=== PATIENT | male | born 1970 | race Caucasian/White ===

== ENCOUNTER 2017-05-18 07:06 | Emergency (ER) | payer OTHER ==
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
[~2017-05-18 07:06] MED LIST: ANTIVERT PO; ANTIVERT12.5 MG; METHADONE PO; NO MEDICATIONS
[2017-05-18 07:31] LABS: BASOPHIL# 0.1 X10e3 (0-0.3); EOSINOPHIL# 0.1 X10e3 (0-0.7); EOSINOPHIL% 1.2 % (0.0-7.0); HEMATOCRIT 38.4 % (38.0-50.0); HEMOGLOBIN 13.2 gm/dL (13.0-16.0); LYMPHOCYTE# 0.8 X10e3 (1.0-3.5); LYMPHOCYTE% 13.1 % (17.0-45.0); MEAN CELL VOLUME 88.6 FL (83-96); MEAN CORPUSCULAR HEMOGLOBIN 30.4 PG (28-34); MEAN CORPUSCULAR HGB CONC 34.3 g/dL (30-36); MEAN PLATELET VOLUME 7.8 FL (6.5-11.5); MONOCYTE# 0.6 X10e3 (0-1.0); MONOCYTE% 8.7 % (3.0-12.0); NEUTROPHIL# 4.8 X10e3 (1.5-7.1); PLATELET COUNT 240 X10e3 (140-420); RED BLOOD COUNT 4.33 X10e (3.90-5.60); RED CELL DISTRIBUTION WIDTH 13.5 % (11.0-15.5); WHITE BLOOD COUNT 6.4 X10e3 (4.0-10.5)
[2017-05-18 07:39] LABS: DIFF IND NO
[2017-05-18 07:51] LABS: ALKALINE PHOSPHATASE 82 U/L (32-92); ALT (SGPT) 105 U/L (10-40); AST (SGOT) 99 U/L (10-42); BILIRUBIN,TOTAL 0.5 mg/dL (0.2-2.0); BLOOD UREA NITROGEN 15 mg/dL (9-23); BUN/CREATININE RATIO 16.66; CALCIUM SERUM 9.1 mg/dL (8.4-10.2); CARBON DIOXIDE 29 mmol/L (22-31); CHLORIDE 98 mmol/L (100-111); CREATININE SERUM 0.9 mg/dL (0.6-1.4); GLOM FILT RATE Estimated 101.4 mL/min (>60); GLUCOSE FASTING 105 mg/dL (70-110); LIPASE 29 U/L (22-51); POTASSIUM 3.5 mmol/L (3.5-5.1); PROTEIN TOTAL SERUM 7.4 g/dL (6.0-8.3); SODIUM 134 mmol/L (135-145)
[2017-05-18 08:00] LABS: ALCOHOL BLOOD <5 mg/dL ([, 0])
== END 2017-05-18 11:44 | disposition home or self-care (01) ==
LOC: SED 07:06
PROVIDERS: Emergency Medicine
DX: S00.03XA Contusion of scalp, initial encounter (principal); S93.402A Sprain of unspecified ligament of left ankle, initial encounter; S93.602A Unspecified sprain of left foot, initial encounter; S16.1XXA Strain of muscle, fascia and tendon at neck level, initial encounter; S60.511A Abrasion of right hand, initial encounter; F17.200 Nicotine dependence, unspecified, uncomplicated; V29.60XA Unspecified motorcycle rider injured in collision with unspecified motor vehicles in traffic accident, initial encounter
CPT/HCPCS: 29405; 36415; 70450; 71260; 72125; 73030; 73130; 73560; 73590; 73610; 73630; 74177; 80053; 82947; 83690; 85025; 96361; 96374; 96375; 99284; G0480; J1885; J2270; J2405; Q9967

== ENCOUNTER 2017-06-02 06:04 | Inpatient (IN) | payer OTHER ==
[~2017-06-02] VITALS: Ht 170.2 cm; Wt 71.2 kg
--- NOTE | ~2017-06-02 | CO ---
Unit #: [id number] #: [id number] Patient: HARMAN BERNARDO [id number] [address] [place], [place] [address] [id number] MR#: [id number] NAME: HARMAN BERNARDO. ROOM: 227 Age: 46 Sex: M Admission Date: 06/02/2017 : 1970 Attending Physician: Brigido Bear M.D. Primary Care Physician: Primary Care Physician No Consultation Date: 06/04/2017 CONSULTATION REPORT REVISED REPORT CHIEF COMPLAINT Left arm pain. HISTORY OF PRESENT ILLNESS The patient is a 46-year-old gentleman with a history of IV drug abuse with a 1 week history of pain in the left biceps, antecubital fossa. He denies any recent injections and denies injecting into the left antecubital fossa particularly. He states he is left handed and has only injected into his right arm. He has a 1 week history of progressive pain and swelling in the left arm. He was admitted with cellulitis and started on empiric vancomycin and Zosyn. A CT scan was obtained, which demonstrated a large intramuscular abscess of greater than 8 cm. The erythema has improved with antibiotics, but he continues to have severe pain with range of motion of the left elbow. It is tender to palpation. It is partially relieved with pain medication. PAST MEDICAL HISTORY History of IV drug use, date of last use unknown. PAST SURGICAL HISTORY Appendectomy and history of unknown left shoulder surgery. SOCIAL HISTORY The patient smokes tobacco. He has no alcohol use. He does IV meth. FAMILY HISTORY Noncontributory. HOME MEDICATIONS None. ALLERGIES No known drug allergies. REVIEW OF SYSTEMS Ten systems are reviewed and negative except as noted in the HPI. PHYSICAL EXAMINATION GENERAL APPEARANCE: A 46-year-old male, appearing slightly older than stated age, in no acute distress or discomfort. PSYCHIATRIC: Awake, alert, and oriented to person, place, time, and situation. Unit #: [id number] #: [id number] Patient: HARMAN BERNARDO CARDIAC: Regular rate and rhythm. PULMONARY: No increased work of breathing. Symmetric chest rise. ABDOMEN: Nondistended. HEENT: Normocephalic and atraumatic cranium. Pupils are equally round and reactive to light. VASCULAR: His hands are warm and well perfused with a palpable radial pulse. SKIN: There is induration of the skin of the biceps. There is no streaking erythema proximally. The erythema has apparently improved after IV antibiotics. MUSCULOSKELETAL: He has tenderness along the biceps and pain in the biceps with range of motion of the elbow. LYMPHATICS: He has diffuse soft tissue swelling and edema in the left upper extremity. No lymphadenopathy. DIAGNOSTIC STUDIES IMAGING STUDIES: A CT scan of the left biceps and elbow was reviewed and demonstrates a large 8-cm fluid collection within the biceps. IMPRESSION A 46-year-old gentleman with a history of IV drug use with left biceps intramuscular abscess. PLAN We will plan for incision and drainage of the abscess today. He will be n.p.o. currently. Hold any anticoagulation. Continue IV antibiotics that is currently prescribed. *NOTE TAKEN OFF. Dictated by... Harshad Morales M.D. SHARI/amol TD: 06/05/2017 03:14 JOB #: [id number] CC: Kristen/invision Please Delete CONSULTATION REPORT Page 1 of 1 X Harshad Morales MD CONSULTATION REPORT
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
--- NOTE | ~2017-06-02 | DS ---
Unit #: [id number] #: [id number] Patient: HARMAN BERNARDO [id number] [address] [address] [id number] I MR#: [id number] NAME: HARMAN BERNARDO ROOM: 227 Age: 46 Sex: M Admission Date: 06/02/2017 : 1970 Discharge Date: 06/07/2017 Attending Physician: Brigido Bear M.D. Primary Care Physician: Primary Care Physician No DISCHARGE SUMMARY DISCHARGE DIAGNOSES Methicillin-resistant Staphylococcus aureus cellulitis with abscess of left upper extremity, IV drug abuse, acute pain syndrome. HOSPITAL COURSE The patient is a 46-year-old male, who presented to [facility] Emergency Department with a 1-week history of worsening left arm pain, said it progressed from his shoulder toward his fingers and was severe. The patient does have a history of IV drug abuse and therefore, there was some concern for abscess formation. CT scan was performed as a result and the patient was noted to have a large multiloculated abscess involving a large portion of the biceps muscle extending into the antecubital fossa. Consult was placed to Orthopedics, who took the patient to the operating room and did an I and D of the left biceps intramuscular abscess. The patient continued on IV Zosyn and vancomycin which was started at admission. At this time, the patient's wound culture has grown MRSA susceptible to Bactrim, clindamycin, tetracyclines, and vancomycin. The patient has been seen by Infectious Disease, who recommends switching to oral doxycycline which has been done. The patient is being discharged home with said antibiotic at this time. DISCHARGE MEDICATIONS Doxycycline 100 mg p.o. b.i.d. x10 more days, Percocet 5/325 one p.o. q.8 hours p.r.n. pain. FOLLOWUP The patient states that he is from [place], [place], and will follow up with his provider there. This does seem reasonable and I have instructed the patient to do so at the end of the antibiotic course. Dictated by... Easton Hart/amol TD: 06/11/2017 00:57 JOB #: [id number] Unit #: [id number] #: [id number] Patient: HARMAN BERNARDO DISCHARGE SUMMARY Page 1 of 1 X Kwan Buckner MD X DISCHARGE SUMMARY
--- NOTE | ~2017-06-02 | CT125 ---
[facility] A Service [facility] RADIOLOGY TEXT RESULTS PATIENT: HARMAN BERNARDO LOCATION: [facility] : 68 UNIT #: [id number] AGE: [address]: MINNA NINO V SEX: M ORDER DR: [id number] [address] [place], [place] [address] [id number] I MR#: [id number] #: [id number] NAME: HARMAN BERNARDO. : 1970 SEX: M STUDY DATE/TIME: 06/03/2017 0:45 UNIT: [id number] PCU ROOM: 309 STUDY DESCRIPTION: CT Upper Ext Lt W Cont Attending Physician: Minna Nino M.D. Ordering Physician: Kwan Buckner M.D. Primary Care Physician: No Primary Care Physician MEDICAL IMAGING REPORT This report is preliminary unless electronic signature is present EXAM Left upper extremity CT with contrast. INDICATIONS Left upper extremity pain and swelling for the past 2 weeks. IV drug abuse. PROCEDURE Contrast-enhanced CT of the left upper extremity. This CT exam was performed with one or more of the following radiation dose reduction techniques: automatic exposure control, adjustment of mA and/or kV according to patient size, and iterative reconstruction. COMPARISON None. FINDINGS No acute bone injury or aggressive appearing bone change. There is a large multiloculated abscess involving essentially the entire biceps muscle. Largest component measures up to 8.4 cm in diameter. The abscess extends all way to the antecubital fossa. There is diffuse soft tissue edema. IMPRESSION 1. Large multiloculated abscess involving a large portion of the biceps muscle extending into the antecubital fossa. 2. Diffuse soft tissue edema. 3. No aggressive appearing bone change. Dictated by... Sebas Amado M.D. [facility] A Service [facility] RADIOLOGY TEXT RESULTS PATIENT: HARMAN BERNARDO LOCATION: [facility] : 68 UNIT #: [id number] AGE: [address]: MORE,MINNA V SEX: M ORDER DR: THIS IS AN ELECTRONICALLY VERIFIED REPORT Sebas Amado M.D. at 06/05/2017 10:01 PM Cameron TD: 06/03/2017 07:16 JOB #: [id number] MEDICAL IMAGING REPORT Page 1 of 1 COPY
--- NOTE | ~2017-06-02 | OR ---
Unit #: [id number] #: [id number] Patient: HARMAN BERNARDO [id number] [address] [place], [place] [address] [id number] I MR#: [id number] NAME: HARMAN BERNARDO. ROOM: [facility] Date of Procedure: 06/04/2017 Admission Date: 06/02/2017 Surgeon: Harshad Morales M.D. : 1970 Attending Physician: Brigido Bear M.D. Primary Care Physician: Primary Care Physician No OPERATIVE REPORT PREOPERATIVE DIAGNOSIS Left biceps intramuscular abscess. POSTOP DIAGNOSIS Left biceps intramuscular abscess. PROCEDURES Incision and drainage of left biceps intramuscular abscess. ANESTHESIA General. ESTIMATED BLOOD LOSS 20 mL. COMPLICATIONS None apparent. SPECIMENS Cultures to microbiology. INDICATIONS FOR PROCEDURE Mr. Bernardo is a 46-year-old gentleman with history of IV methamphetamine use with an intramuscular abscess in the left arm. He denies any recent injection history into this area. His abscess is confirmed by CT scan measuring of 8 cm. We discussed incision and drainage. DESCRIPTION OF PROCEDURE The patient was identified in the preoperative holding area. The operative site was marked. Preoperative antibiotics were administered. The left upper extremity was then prepped and draped in sterile fashion. An incision was made in a longitudinal fashion overlying the medial aspect of the biceps brachii. Dissection was carried down through subcutaneous tissues. The fascia was opened. The biceps muscle belly itself was exposed. Metzenbaum scissors were used to split into the biceps muscle fibers inline with the fibers. There was a large fluid collection extending proximal to our incision. The scissors and hemostat were passed up into the biceps and then spread slightly. A large efflux of purulent fluid was obtained. Cultures were obtained of the fluid. No further loculations were identified. The area was adequately decompressed. The wound was then irrigated with sterile saline via bulb lavage. A Ruth Unit #: [id number] #: [id number] Patient: HARMAN BERNARDO drain was placed into the abscess cavity. The wound was again irrigated, and the skin was reapproximated with nylon sutures except for the central portion in which the Ruth drain was exiting. Sterile dressings were applied. DISPOSITION The patient was aroused from anesthesia and transported to recovery room in stable condition. Dictated by... Easotn Yen/amol TD: 06/05/2017 08:22 JOB #: [id number] OPERATIVE REPORT Page 1 of 1 X Harshad Morales MD PROCEDURE OPERATIVE NOTE
--- NOTE | ~2017-06-02 | HP ---
Unit #: [id number] #: [id number] Patient: HARMAN BERNARDO [id number] [address] [place], [place] [address] [id number] I MR#: [id number] NAME: HARMAN BERNARDO. ROOM: 309 Age: 46 Sex: M Admission Date: 06/02/2017 : 1970 Attending Physician: Kwan Buckner M.D. Primary Care Physician: No Primary Care Physician HISTORY AND PHYSICAL CHIEF COMPLAINT Left arm pain. HISTORY OF PRESENT ILLNESS The patient is a 46-year-old male presented to [facility] Emergency Department with a 1-week history of worsening left arm pain. States it started in his right shoulder and has progressively worked its way down his arm toward his fingertips. He states that he is in severe pain, worse with movement. He has subjective fevers. No alleviating factors at this time. PAST MEDICAL HISTORY The patient denies any significant past medical history. PAST SURGICAL HISTORY He had a left shoulder surgery many years ago and appendectomy many years ago. SOCIAL HISTORY The patient smokes. Denies alcohol use. States he does IV meth. FAMILY HISTORY The patient denies any significant family history. HOME MEDICATIONS None. MEDICATION ALLERGIES None. REVIEW OF SYSTEMS Ten-point review of systems obtained; negative except as per HPI. PHYSICAL EXAM VITAL SIGNS: Temperature 99.4, pulse 73, blood pressure 144/96. GENERAL: 46-year-old male. No acute distress. Appears stated age. HEENT: Pupils equally round. Extraocular movements intact. Mucous membranes dry. NECK: Supple. No JVD, lymphadenopathy. CARDIAC: Regular rate and rhythm. No murmurs, gallops, rubs. LUNGS: Clear to auscultation bilaterally. ABDOMEN: Nontender, nondistended. Positive bowel sounds. EXTREMITIES: Left upper extremity is swollen, erythematous, warm to touch. Unit #: [id number] #: [id number] Patient: HARMAN BERNARDO PSYCH: Alert and oriented x3. Affect is appropriate. NEUROLOGICAL: Cranial nerves II-XII intact grossly. Patient moves all extremities equally and with purpose. SKIN: No rashes, bruises or ulcers. MUSCULOSKELETAL: No muscle or joint pain. No muscle or joint swelling. DIAGNOSTIC STUDIES LABORATORIES: Hemoglobin is 12.2. Potassium is 3. IMAGING: Ultrasound of left upper extremity is negative for DVT. ASSESSMENT AND PLAN 1. Cellulitis. Patient has been started on vanc and Zosyn. I have ordered a CT with contrast to rule out abscess in his left upper extremity. 2. Pain. I have started the patient on Percocet. 3. Prophylaxis. Patient has been started on SCDs. Dictated by Easton Hart/chava TD: 06/02/2017 18:32 JOB #: [id number] HISTORY AND PHYSICAL Page 1 of 1 X Kwan Buckner MD HISTORY AND PHYSICAL
--- NOTE | ~2017-06-02 | CR156 ---
[facility]. [facility] A Service of [facility] RADIOLOGY TEXT RESULTS PATIENT: HARMAN BERNARDO LOCATION: [facility] : [birth year] UNIT #: [id number] AGE: [address]: FRANK NINOJ V SEX: M ORDER DR: [id number] [address] [address] [id number] E MR#: [id number] Acc #: [id number] NAME: HARMAN BERNARDO : 1970 SEX: M STUDY DATE/TIME: 06/02/2017 7:08 UNIT: SED ROOM: STUDY DESCRIPTION: CR Humerus Min 2 View Lt Attending Physician: Nhi Galvan M.D. Ordering Physician: Juanito Garcia M.D. Primary Care Physician: Primary Care Physician No MEDICAL IMAGING REPORT This report is preliminary unless electronic signature is present. EXAM Left humerus 3 views, 06/02/2017 HISTORY Left upper arm pain and edema for 2 weeks. Drug abuse. FINDINGS There is no evidence of fracture, dislocation, or radiopaque foreign body. No focal bone lesions are seen. IMPRESSION Normal left humerus. Dictated by... Harshad Ramos M.D. THIS IS AN ELECTRONICALLY VERIFIED REPORT Harshad Ramos M.D. at 06/03/2017 10:33 AM NEGRITO/michelle TD: 06/02/2017 09:08 JOB #: [id number] MEDICAL IMAGING REPORT Page 1 of 1
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
[2017-06-02 07:18] LABS: BASOPHIL% 0.6 % (0-2.5); EOSINOPHIL# 0.2 X10e3 (0-0.7); EOSINOPHIL% 2.3 % (0.0-7.0); HEMATOCRIT 35.7 % (38.0-50.0); HEMOGLOBIN 12.2 gm/dL (13.0-16.0); LYMPHOCYTE# 0.9 X10e3 (1.0-3.5); LYMPHOCYTE% 13.4 % (17.0-45.0); MEAN CELL VOLUME 89.5 FL (83-96); MEAN CORPUSCULAR HEMOGLOBIN 30.6 PG (28-34); MEAN CORPUSCULAR HGB CONC 34.2 g/dL (30-36); MEAN PLATELET VOLUME 7.3 FL (6.5-11.5); MONOCYTE# 0.6 X10e3 (0-1.0); MONOCYTE% 8.6 % (3.0-12.0); NEUTROPHIL# 5.3 X10e3 (1.5-7.1); NEUTROPHIL% 75.1 % (40-75); PLATELET COUNT 299 X10e3 (140-420); RED BLOOD COUNT 3.99 X10e (3.90-5.60); RED CELL DISTRIBUTION WIDTH 13.7 % (11.0-15.5)
[2017-06-02 07:21] LABS: DIFF IND NO
[2017-06-02 07:44] LABS: BUN/CREATININE RATIO 12.22; CALCIUM SERUM 8.6 mg/dL (8.4-10.2); CREATININE SERUM 0.9 mg/dL (0.6-1.4); GLOM FILT RATE Estimated 101.4 mL/min (>60)
[2017-06-02 19:54] LABS: MAGNESIUM 1.8 mg/dL (1.6-3.0); POTASSIUM 3.4 mmol/L (3.5-5.1)
[2017-06-03 06:26] LABS: HEMATOCRIT 34.1 % (38.0-50.0); HEMOGLOBIN 11.7 gm/dL (13.0-16.0); MEAN CELL VOLUME 89.7 FL (83-96); MEAN CORPUSCULAR HEMOGLOBIN 30.8 PG (28-34); MEAN CORPUSCULAR HGB CONC 34.4 g/dL (30-36); MEAN PLATELET VOLUME 7.6 FL (6.5-11.5); RED BLOOD COUNT 3.81 X10e (3.90-5.60); RED CELL DISTRIBUTION WIDTH 13.4 % (11.0-15.5); WHITE BLOOD COUNT 7.4 X10e3 (4.0-10.5)
[2017-06-03 06:54] LABS: BUN/CREATININE RATIO 12.85; CALCIUM SERUM 8.7 mg/dL (8.4-10.2); CREATININE SERUM 0.7 mg/dL (0.6-1.4); GLOM FILT RATE Estimated 112.4 mL/min (>60); POTASSIUM 3.9 mmol/L (3.5-5.1)
[2017-06-04 06:48] LABS: MAGNESIUM 1.9 mg/dL (1.6-3.0); POTASSIUM 3.7 mmol/L (3.5-5.1)
[2017-06-05 06:43] LABS: BUN/CREATININE RATIO 11.25; CALCIUM SERUM 8.3 mg/dL (8.4-10.2); CREATININE SERUM 0.8 mg/dL (0.6-1.4); GLOM FILT RATE Estimated 106.4 mL/min (>60); POTASSIUM 4.2 mmol/L (3.5-5.1)
[2017-06-06 07:32] LABS: HEMATOCRIT 33.3 % (38.0-50.0); HEMOGLOBIN 11.3 gm/dL (13.0-16.0); MEAN CELL VOLUME 90.3 FL (83-96); MEAN CORPUSCULAR HEMOGLOBIN 30.7 PG (28-34); RED BLOOD COUNT 3.69 X10e (3.90-5.60); RED CELL DISTRIBUTION WIDTH 13.5 % (11.0-15.5); WHITE BLOOD COUNT 6.8 X10e3 (4.0-10.5)
[2017-06-06 08:08] LABS: ALBUMIN SERUM 2.6 g/dL (3.5-5.0); BILIRUBIN,TOTAL 0.5 mg/dL (0.2-2.0); BUN/CREATININE RATIO 12.5; CALCIUM SERUM 8.7 mg/dL (8.4-10.2); CREATININE SERUM 0.8 mg/dL (0.6-1.4); GLOM FILT RATE Estimated 106.4 mL/min (>60); MAGNESIUM 1.8 mg/dL (1.6-3.0); POTASSIUM 4.2 mmol/L (3.5-5.1); PROTEIN TOTAL SERUM 5.8 g/dL (6.0-8.3)
[2017-06-07 06:59] LABS: BUN/CREATININE RATIO 11.25; CALCIUM SERUM 8.7 mg/dL (8.4-10.2); CREATININE SERUM 0.8 mg/dL (0.6-1.4); GLOM FILT RATE Estimated 106.4 mL/min (>60)
[2017-06-07] MEDS ORDERED: DOXYCYCLINE HY100 M3 PO (14:54)
[2017-06-07] MEDS ORDERED: PERCOCET5/325 PO (14:54)
== END 2017-06-07 15:49 | disposition home or self-care (01) | DRG 580 ==
LOC: SED 06:04 → SEDOF 11:33 → SED 11:33 → SEDOF 12:48 → C3A PCU 12:48 → SEDOF 13:46 → C3A PCU 13:46 → C2A 06-03 10:51 → C3A PCU 06-03 10:51 → C2A 06-03 10:51
PROVIDERS: Emergency Medicine; Internal Medicine; Orthopaedic Surgery
PROC: 0K980ZZ Drainage of Left Upper Arm Muscle, Open Approach (ICD-10-PCS; principal; 2017-06-04 16:00)
DX: L03.114 Cellulitis of left upper limb (principal); M60.022 Infective myositis, left upper arm; B95.62 Methicillin resistant Staphylococcus aureus infection as the cause of diseases classified elsewhere; F17.210 Nicotine dependence, cigarettes, uncomplicated; M79.622 Pain in left upper arm; F15.10 Other stimulant abuse, uncomplicated
CPT/HCPCS: 73060; 73201; 80048; 80053; 80202; 83605; 83735; 84132; 85025; 85027; 87040; 87070; 87075; 87077; 87186; 87205; 93971; 96361; 96365; 96366; 96367; 96375; 97165; 97535; 99285; G8987-GO; G8988-GO; J1650; J1885; J2250; J2270; J2405; J2543; J3010; J3370; J3475; Q9967